=== PATIENT | male | born 1965 | race Caucasian/White ===

== ENCOUNTER 2020-11-25 06:54 | Day surgery (SDC) | payer MEDICAID ==
[2020-11-25] MEDS ORDERED: Lactated Ringers 1,000 ML IV SCH (07:00)
[2020-11-25] MEDS ORDERED: Sodium Chloride 0.9% 10 ML Syringe FLUSH PRN (07:00)
[2020-11-25] MEDS ORDERED: Propofol 200 MG/20 ML SDV ONE (08:09)
[2020-11-25] MEDS ORDERED: fentaNYL 100 MCG/2 ML SDV ONE (08:09)
--- NOTE | 2020-11-25 13:34 | OR ---
SURGERY DATE: 11/25/2020. REFERRING PROVIDER: IRENE Davis PRE-OPERATIVE DIAGNOSES: 1. [id number] wall thickening of the mid to distal esophagus seen on CT scan. 2. Some rare heartburn symptoms. The patient denies any dysphagia. He is on pantoprazole 20 mg daily. POST-OPERATIVE DIAGNOSES: 1. Some minimal antritis noted. Antrum biopsy x2 bites taken using cold forceps. 2. Otherwise normal esophagogastroduodenoscopy. PROCEDURE: Esophagogastroduodenoscopy with cold biopsy x1 site using cold forceps. SURGEON: Carlton Shirley M.D. ANESTHESIA: Monitored anesthesia care. Dom is a 55-year-old male who was brought to the endoscope suite after discussion of risks and benefits (including but not limited to reaction to medication, bleeding, infection, aspiration, perforation). Informed consent was obtained for monitored anesthesia care and esophagogastroduodenoscopy along with possible biopsy and/or dilatation. Pre-procedure exam including oral cavity was unremarkable except for multiple absent teeth. IV, oxygen, and monitors were placed. Patient was placed in the left lateral position and sedation was administered. A bite block was placed gently and scope lightly lubricated and passed through the bite block and over the tongue. Hypopharynx and vocal cords were visualized and unremarkable. Scope was passed through the cricopharynx and into the esophagus. The scope was then passed through the distal esophagus and the GE junction was visualized and photographed. The GE junction was unremarkable. Vocal cords were visualized and unremarkable. The scope was advanced into the stomach and gastric ames was suctioned. Pylorus was identified and intubated and then the scope was advanced to the third portion of the duodenum. The second and third portions of the duodenum were unremarkable. The duodenal bulb was visualized and unremarkable. The scope was brought back into the stomach. The pylorus and the antrum were remarkable for some minimal antritis. Biopsies for H pylori and path were obtained from the antrum. Cold biopsy x2 bites was taken from this area to check for H. pylori and sent for path. The scope was retroflexed to visualize the angularis, fundus, body, and cardia. These were unremarkable. The stomach was desufflated of air and then the scope was slowly withdrawn, and the esophagus was closely visualized during withdrawal all the way into the posterior pharynx and was unremarkable. The patient tolerated the procedure well and went to recovery in stable condition. The patient was monitored until at baseline status. Findings and discharge instructions were reviewed and the patient was discharged in good condition. COMPLICATIONS: None. TOTAL TIME: 7 minutes. ESTIMATED BLOOD LOSS: Less than 1 mL. RECOMMENDATIONS/FOLLOW-UP: We will send letter with results of path report. For now, he can continue his pantoprazole 20 mg daily. I would like to kindly thank Uri Gerardo for this referral. DMB: 11/25/2020 09:37:40 MODL: 11/25/2020 11:29:15 /[id number]
== END 2020-11-25 10:45 | disposition home or self-care (01) ==
LOC: VM.SDS 06:54
PROVIDERS: ATTEND Family Medicine
DX: K29.50 Unspecified chronic gastritis without bleeding (principal); K31.89 Other diseases of stomach and duodenum; K22.8 Other specified diseases of esophagus; I10 Essential (primary) hypertension; E11.9 Type 2 diabetes mellitus without complications; E66.9 Obesity, unspecified; Z79.899 Other long term (current) drug therapy; Z79.84 Long term (current) use of oral hypoglycemic drugs; Z79.82 Long term (current) use of aspirin; Z88.8 Allergy status to other drugs, medicaments and biological substances; Z68.38 Body mass index [BMI] 38.0-38.9, adult
CPT/HCPCS: 00731; 82947; J2704; J3010; J7120